=== PATIENT | male | born 1965 ===

== ENCOUNTER 2018-04-25 01:56 | Emergency (ER) | payer OTHER ==
[2018-04-25 02:06] VITALS: BP 158/104
[2018-04-25] MEDS ORDERED: GENTAMICIN 0.3% OPHTH SOLN OU ONE (03:27)
[2018-04-25] MEDS ORDERED: IBUPROFEN PO ONE (03:46)
[2018-04-25] MEDS ORDERED: BENADRYL PO ONE (03:46)
--- NOTE | 2018-04-25 03:52 | Emergency Department Report ---
[facility] Chief Complaint: Eye Problems Stated Complaint: POSS BILATERAL CONJUCTIVITUS Time Seen by Provider: 04/25/18 03:37 Duration: 4 Days Side: Bilateral Severity: moderate Symptoms: Yes Eye Itching, Yes Eye Redness, Yes Eye Pain (burning stinging), Yes Mucous Drainage, Yes Purulent Drainage, Yes H/O Allergic Rhinitis, Yes Contact Lens Use, No Blurred Vision, No Preceding URI, No Trauma, No Fever, No Headache Other History: Patient is a 52-year-old -[place] male who presents for bilateral conjunctivitis states treated by PCP unable to afford to get the d rops symptoms including itching and burning yellow-green mattering in a.m. patient denies fevers or chills no nausea vomiting no visual loss ED Review of Systems ROS: Stated complaint: POSS BILATERAL CONJUCTIVITUS Other details as noted in HPI Constitutional: denies: chills, fever Eyes: eye pain, eye discharge. denies: vision change ENT: denies: ear pain, throat pain Respiratory: denies: cough, shortness of breath, wheezing Cardiovascular: denies: chest pain, palpitations Endocrine: no symptoms reported Gastrointestinal: denies: abdominal pain, nausea, diarrhea Genitourinary: denies: urgency, dysuria Musculoskeletal: denies: back pain, joint swelling, arthralgia Skin: denies: rash, lesions Neurological: denies: headache, weakness, paresthesias Psychiatric: denies: anxiety, depression Hematological/Lymphatic: denies: easy bleeding, easy bruising ED Past Medical Hx - Past Medical History Previous Medical History?: Yes Hx Hypertension: Yes (not taking meds) - Surgical History Past Surgical History?: No - Social History Smoking Status: Current Every Day Smoker Substance Use Type: Alcohol - Medications Home Medications: Home Medications Medication Instructions Recorded Confirmed Last Taken Type Cetirizine HCl [ZyrTEC] 10 mg PO DAILY #30 capsule 04/25/18 Unknown Rx Gentamicin 0.3% Ophth Soln 2 drops OP Q4H 10 Days #1 bottle 04/25/18 Unknown Rx Ibuprofen 800 mg PO TID PRN #30 tablet 04/25/18 Unknown Rx [facility] Exam - Exam General: Vital signs noted. No distress. Alert and acting appropriately. Eye Exam: Left Injection, Right Abnormal Pupil, Both EOMI, Both Mucous Discharge, Both Purulent Discharge, Both Photophobia, Neither Chemosis, Neither Eye Foreign Body, Neither Lid Foreign Body, Neither Fluorescein Uptake, Neither Fluorescein Uptake (slit lamp), Neither Cell/Flare (slit lamp), Neither Corneal Edema HEENT: Yes Nasal Congestion, Yes Pharyngeal Erythema Remainder of HEENT: Normal Lungs: Yes Clear Lung Sounds, Yes Good Air Exchange, No Wheezes, No Stridor, No Cough, No Nasal Flaring, No Retractions, No Use of Accessory Muscles Exam: Patient is PERRLA EOMI mild bilateral conjunctivitis with conjunctival erythema yellow purulent drainage there is no decreased vision visual acuity is 20/30 bilaterally no symptoms of entrapment is positive movement in all quadrants no neurodeficits no fever ED Course Vital Signs 04/25/18 02:03 Temperature 98.4 F Pulse Rate 99 H Respiratory 16 Rate Blood Pressure 158/104 O2 Sat by Pulse 98 Oximetry ED Medical Decision Making - Medical Decision Making Plan treatment for conjunctivitis with gentamicin eyedrops 2 drops every 4 hours while awake 10 days Zyrtec and Benadryl patient will follow up with ophthalmology in 2 days for follow-up care patient will return to ED should symptoms worsen patient verbalized understanding and agreement with discharge plan will be DC'd home in stable condition at this time. Critical care attestation.: If time is entered above; I have spent that time in minutes in the direct care of this critically ill patient, excluding procedure time. ED Disposition Clinical Impression: Conjunctivitis Qualifiers: Conjunctivitis type: acute Acute conjunctivitis type: bacterial Laterality: bilateral Qualified Code(s): H10.33 - Unspecified acute conjunctivitis, bilateral Disposition: DC-01 TO HOME OR SELFCARE Is pt being admited?: No Does the pt Need Aspirin: No Condition: Stable Instructions: Conjunctivitis (ED) Prescriptions: Cetirizine HCl [ZyrTEC] 10 mg PO DAILY #30 capsule Gentamicin 0.3% Ophth Soln 2 drops OP Q4H 10 Days #1 bottle Ibuprofen 800 mg PO TID PRN #30 tablet PRN Reason: Pain , Severe (7-10) Referrals: PRASHANT RUSSO MD [Staff Physician] - 3-5 Days Forms: Work/School Release Form(ED) Time of Disposition: 04:01
== END 2018-04-25 04:05 | disposition home or self-care (01) ==
LOC: ED 01:56
DX: H10.33 Unspecified acute conjunctivitis, bilateral (principal); I10 Essential (primary) hypertension; F17.200 Nicotine dependence, unspecified, uncomplicated; Z88.1 Allergy status to other antibiotic agents
CPT/HCPCS: 99283

== ENCOUNTER 2018-08-26 05:29 | Emergency (ER) | payer OTHER ==
[2018-08-26 05:43] VITALS: BP 126/90
[2018-08-26 06:33] LABS: Basophils % (Auto) 0.3 % (0.0-1.8); Eosinophils # (Auto) 0.1 K/mm3 (0.0-0.4); Eosinophils % (Auto) 2.1 % (0.0-4.3); Hematocrit 39.9 % (35.5-45.6); Hemoglobin 12.8 gm/dl (11.8-15.2); Lymphocytes # (Auto) 1.7 K/mm3 (1.2-5.4); Lymphocytes % (Auto) 36.3 % (13.4-35.0); Mean Corpuscular HGB Conc 32 % (32-34); Mean Corpuscular Volume 76 fl (84-94); Monocytes # (Auto) 0.6 K/mm3 (0.0-0.8); Monocytes % (Auto) 13.2 % (0.0-7.3); Red Blood Count 5.25 M/mm3 (3.65-5.03)
[2018-08-26 06:36] LABS: BUN/Creatinine Ratio 24; Blood Urea Nitrogen 22 mg/dL (9-20); Calcium 8.9 mg/dL (8.4-10.2); Hemolysis Index 9
--- NOTE | 2018-08-26 06:43 | Emergency Department Report ---
ED Alcohol HPI - General Chief Complaint: Alcohol Stated Complaint: DETOX Time Seen by Provider: 08/26/18 06:19 Source: patient Mode of arrival: Ambulatory Limitations: No Limitations - History of Present Illness Initial Comments: 53-year-old male with a past medical history of hypertension presents to the hospital requesting detox from alcohol and cigarettes. Patient drinks liquor daily. Last alcohol intake was yesterday. He denies current tremors or history of alcohol withdrawal tremors or seizures. No physical complaints. He denies any other substance abuse. He denies any previous psychiatric history/diagnosis. - Related Data Home Medications Medication Instructions Recorded Confirmed Last Taken No Known Home Medications [No 08/26/18 08/26/18 Unknown Reported Home Medications] Allergies Allergy/AdvReac Type Severity Reaction Status Date / Time tetracycline Allergy Swelling Verified 04/25/18 02:02 ED Review of Systems ROS: Stated complaint: DETOX Other details as noted in HPI Comment: All other systems reviewed and negative ED Past Medical Hx - Past Medical History Previous Medical History?: Yes Hx Hypertension: Yes - Surgical History Past Surgical History?: Yes - Social History Smoking Status: Current Every Day Smoker Substance Use Type: Alcohol - Medications Home Medications: Home Medications Medication Instructions Recorded Confirmed Last Taken Type No Known Home Medications [No 08/26/18 08/26/18 Unknown History Reported Home Medications] ED Physical Exam - General Limitations: No Limitations - Other Other exam information: General: No limitations, patient is alert in no acute distress Head exam: Atraumatic, normocephalic Eyes exam: Normal appearance,left eye with limited medial movement which is chronic from previous injury ENT: Moist mucous membrane, normal oropharynx Neck exam: Normal inspection, full range of motion, no meningismus nontender Respiratory exam: Clear to auscultation bilateral, no wheezes, rales, crackles Cardiovascular: Normal rate and rhythm, normal heart sounds Abdomen: Soft, nondistended, and nontender, with normal bowel sounds, no rebound, or guarding Extremity: Full range of motion normal inspection no deformity Back: Normal Inspection, full range of motion, no tenderness Neurologic: Alert, oriented x3, cranial nerves intact, no motor or sensory deficit Psychiatric: normal affect, normal mood Skin: Warm, dry, intact ED Course Vital Signs 08/26/18 05:38 Temperature 97.8 F Pulse Rate 80 Respiratory 18 Rate Blood Pressure 126/90 O2 Sat by Pulse 100 Oximetry - Consultations Consultation #1: 08/26/18 08:41 pt seen by jess with mental health. outpt referral with [facility] will be provided ED Medical Decision Making - Lab Data Result diagrams: 08/26/18 06:05 08/26/18 06:05 Lab Results 08/26/18 08/26/18 08/26/18 Range/Units 06:05 06:05 06:05 WBC (4.5-11.0) K/mm3 RBC (3.65-5.03) M/mm3 Hgb (11.8-15.2) gm/dl Hct (35.5-45.6) % MCV (84-94) fl MCH (28-32) pg MCHC (32-34) % RDW (13.2-15.2) % Plt Count (140-440) K/mm3 Lymph % (Auto) (13.4-35.0) % [place] % (Auto) (0.0-7.3) % Eos % (Auto) (0.0-4.3) % Baso % (Auto) (0.0-1.8) % Lymph # (1.2-5.4) K/mm3 [place] # (0.0-0.8) K/mm3 Eos # (0.0-0.4) K/mm3 Baso # (0.0-0.1) K/mm3 Seg Neutrophils % (40.0-70.0) % Seg Neutrophils # (1.8-7.7) K/mm3 Sodium 142 (137-145) mmol/L Potassium 3.8 (3.6-5.0) mmol/L Chloride 103.4 (98-107) mmol/L Carbon Dioxide 26 (22-30) mmol/L Anion Gap 16 mmol/L BUN 22 H (9-20) mg/dL Creatinine 0.9 (0.8-1.5) mg/dL Estimated GFR > 60 ml/min BUN/Creatinine Ratio 24 % Glucose 91 (75-100) mg/dL Calcium 8.9 (8.4-10.2) mg/dL Magnesium (1.7-2.3) mg/dL Urine Color (Yellow) Urine Turbidity (Clear) Urine pH (5.0-7.0) Ur Specific [place] (1.003-1.030) Urine Protein (Negative) mg/dL Urine Glucose (UA) (Negative) mg/dL Urine Ketones (Negative) mg/dL Urine Blood (Negative) Urine Nitrite (Negative) Urine Bilirubin (Negative) Urine Urobilinogen (<2.0) mg/dL Ur Leukocyte Esterase (Negative) Urine WBC (Auto) (0.0-6.0) /HPF Urine RBC (Auto) (0.0-6.0) /HPF Urine Mucus /HPF Salicylates < 0.3 L (2.8-20.0) mg/dL Urine Opiates Screen Urine Methadone Screen Acetaminophen < 5.0 L (10.0-30.0) ug/mL Ur Barbiturates Screen Ur Phencyclidine Scrn Ur Amphetamines Screen U Benzodiazepines Scrn Urine Cocaine Screen U Marijuana (THC) Screen Drugs of Abuse Note Plasma/Serum Alcohol (0-0.07) % 08/26/18 08/26/18 08/26/18 Range/Units 06:05 06:05 06:05 WBC 4.5 (4.5-11.0) K/mm3 RBC 5.25 H (3.65-5.03) M/mm3 Hgb 12.8 (11.8-15.2) gm/dl Hct 39.9 (35.5-45.6) % MCV 76 L (84-94) fl MCH 24 L (28-32) pg MCHC 32 (32-34) % RDW 15.0 (13.2-15.2) % Plt Count 89 L (140-440) K/mm3 Lymph % (Auto) 36.3 H (13.4-35.0) % [place] % (Auto) 13.2 H (0.0-7.3) % Eos % (Auto) 2.1 (0.0-4.3) % Baso % (Auto) 0.3 (0.0-1.8) % Lymph # 1.7 (1.2-5.4) K/mm3 [place] # 0.6 (0.0-0.8) K/mm3 Eos # 0.1 (0.0-0.4) K/mm3 Baso # 0.0 (0.0-0.1) K/mm3 Seg Neutrophils % 48.1 (40.0-70.0) % Seg Neutrophils # 2.2 (1.8-7.7) K/mm3 Sodium (137-145) mmol/L Potassium (3.6-5.0) mmol/L Chloride (98-107) mmol/L Carbon Dioxide (22-30) mmol/L Anion Gap mmol/L BUN (9-20) mg/dL Creatinine (0.8-1.5) mg/dL Estimated GFR ml/min BUN/Creatinine Ratio % Glucose (75-100) mg/dL Calcium (8.4-10.2) mg/dL Magnesium 2.00 (1.7-2.3) mg/dL Urine Color (Yellow) Urine Turbidity (Clear) Urine pH (5.0-7.0) Ur Specific [place] (1.003-1.030) Urine Protein (Negative) mg/dL Urine Glucose (UA) (Negative) mg/dL Urine Ketones (Negative) mg/dL Urine Blood (Negative) Urine Nitrite (Negative) Urine Bilirubin (Negative) Urine Urobilinogen (<2.0) mg/dL Ur Leukocyte Esterase (Negative) Urine WBC (Auto) (0.0-6.0) /HPF Urine RBC (Auto) (0.0-6.0) /HPF Urine Mucus /HPF Salicylates (2.8-20.0) mg/dL Urine Opiates Screen Urine Methadone Screen Acetaminophen (10.0-30.0) ug/mL Ur Barbiturates Screen Ur Phencyclidine Scrn Ur Amphetamines Screen U Benzodiazepines Scrn Urine Cocaine Screen U Marijuana (THC) Screen Drugs of Abuse Note Plasma/Serum Alcohol < 0.01 (0-0.07) % 08/26/18 08/26/18 Range/Units 06:09 06:09 WBC (4.5-11.0) K/mm3 RBC (3.65-5.03) M/mm3 Hgb (11.8-15.2) gm/dl Hct (35.5-45.6) % MCV (84-94) fl MCH (28-32) pg MCHC (32-34) % RDW (13.2-15.2) % Plt Count (140-440) K/mm3 Lymph % (Auto) (13.4-35.0) % [place] % (Auto) (0.0-7.3) % Eos % (Auto) (0.0-4.3) % Baso % (Auto) (0.0-1.8) % Lymph # (1.2-5.4) K/mm3 [place] # (0.0-0.8) K/mm3 Eos # (0.0-0.4) K/mm3 Baso # (0.0-0.1) K/mm3 Seg Neutrophils % (40.0-70.0) % Seg Neutrophils # (1.8-7.7) K/mm3 Sodium (137-145) mmol/L Potassium (3.6-5.0) mmol/L Chloride (98-107) mmol/L Carbon Dioxide (22-30) mmol/L Anion Gap mmol/L BUN (9-20) mg/dL Creatinine (0.8-1.5) mg/dL Estimated GFR ml/min BUN/Creatinine Ratio % Glucose (75-100) mg/dL Calcium (8.4-10.2) mg/dL Magnesium (1.7-2.3) mg/dL Urine Color Yellow (Yellow) Urine Turbidity Clear (Clear) Urine pH 5.0 (5.0-7.0) Ur Specific [place] 1.030 (1.003-1.030) Urine Protein <15 mg/dl (Negative) mg/dL Urine Glucose (UA) Neg (Negative) mg/dL Urine Ketones Tr (Negative) mg/dL Urine Blood Neg (Negative) Urine Nitrite Neg (Negative) Urine Bilirubin Neg (Negative) Urine Urobilinogen 2.0 (<2.0) mg/dL Ur Leukocyte Esterase Neg (Negative) Urine WBC (Auto) 1.0 (0.0-6.0) /HPF Urine RBC (Auto) 3.0 (0.0-6.0) /HPF Urine Mucus Few /HPF Salicylates (2.8-20.0) mg/dL Urine Opiates Screen Presumptive negative Urine Methadone Screen Presumptive negative Acetaminophen (10.0-30.0) ug/mL Ur Barbiturates Screen Presumptive negative Ur Phencyclidine Scrn Presumptive negative Ur Amphetamines Screen Presumptive negative U Benzodiazepines Scrn Presumptive negative Urine Cocaine Screen Presumptive negative U Marijuana (THC) Screen Presumptive negative Drugs of Abuse Note Disclamer Plasma/Serum Alcohol (0-0.07) % - Medical Decision Making + etoh abuse, no acute intoxication or withdrawal symptoms Patient does not meet criteria for 1013 or acute inpatient treatment Will be discharged with outpatient referral Thrombocytopenia likely secondary to alcohol abuse, previous not available for comparison. No reports of active bleeding. Follow-up advised. - Differential Diagnosis alcohol detox, substance detox Critical Care Time: No Critical care attestation.: If time is entered above; I have spent that time in minutes in the direct care of this critically ill patient, excluding procedure time. ED Disposition Clinical Impression: AA (alcohol abuse), Thrombocytopenia Disposition: TO HOME OR SELFCARE Is pt being admited?: No Does the pt Need Aspirin: No Condition: Stable Instructions: Abuse of Alcohol (ED), Thrombocytopenia (ED) Additional Instructions: Follow-up with the outpatient resources provided with [facility] or [facility]. Follow up with a live games dealer or your primary care doctor for further evaluation of your low platelet level. Chronic alcohol abuse can lead to low platelet level which can increase your risk for bleeding. Return is symptoms worsen as indicated by your discharge instructions. Referrals: SHEKHAR ALDANA MD [Primary Care Provider] - 3-5 Days [facility] [Other] - 2-3 Days [facility] [Other] - 2-3 Days Time of Disposition: 08:51
[2018-08-26 07:21] LABS: Bilirubin,Urine NEG (Negative); Blood,Urine NEG (Negative); Color,Urine Yellow (Yellow); Mucus,Urine FEW /HPF; Protein,Urine <15 mg/dL mg/dL (Negative)
[2018-08-26 07:31] LABS: Amphetamine Screen,Urine PRESUMPTIVE NEGATIVE; Benzodiazepines Screen,Urine PRESUMPTIVE NEGATIVE; Cannabinoid Screen,Urine PRESUMPTIVE NEGATIVE; Cocaine Screen,Urine PRESUMPTIVE NEGATIVE; Methadone Screen,Urine PRESUMPTIVE NEGATIVE; Opiate Screen,Urine PRESUMPTIVE NEGATIVE
[2018-08-26 08:07] LABS: Platelet Count 89 K/mm3 (140-440)
== END 2018-08-26 09:08 | disposition home or self-care (01) ==
LOC: ED 05:29
DX: F10.10 Alcohol abuse, uncomplicated (principal); D69.6 Thrombocytopenia, unspecified; I10 Essential (primary) hypertension; F17.200 Nicotine dependence, unspecified, uncomplicated; Z88.1 Allergy status to other antibiotic agents
CPT/HCPCS: 36415; 80048; 80307; 81001; 83735; 85025; 99284; G0480; 80320; 99283

== ENCOUNTER 2018-12-24 11:29 | Emergency (ER) | payer SELFPAY ==
[2018-12-24 11:37] VITALS: BP 137/97
--- NOTE | 2018-12-24 11:41 | Emergency Department Report ---
Chief Complaint: Medical Clearance Stated Complaint: HBP Time Seen by Provider: 12/24/18 11:35 - HPI History of Present Illness: This is a 53-year-old male nontoxic, well in appearance with no signs of distress presents to the ED for blood pressure check. Patient stated does take medications for his blood pressure. Patient stated he is asymptotic. Denies any pain. Patient denies any urinary symptoms. Patient denies any fever, chills, headache, nausea, vomiting, chest pain or shortness of breathe. denies any symptoms or complaints. - Exam Vital Signs: Vital Signs 12/24/18 11:35 Temperature 98.5 F Pulse Rate 96 H Respiratory 16 Rate Blood Pressure 137/97 O2 Sat by Pulse 98 Oximetry Physical Exam: no headache. no abdominal pain. no back pain. MSE screening note: Focused history and physical exam performed. Due to findings the following was ordered: ED Medical Decision Making - Medical Decision Making This is a 53-year-old male that presents with nonmedical emergency complaint. I gave patient many different referrals to follow-up. Patient was instructed to Follow-up with a primary care doctor in 3-5 days or if symptoms worsen and continue return to emergency room as soon as possible. At time of discharge, the patient does not seem toxic or ill in appearance. No acute signs of distress noted. Patient agrees to discharge treatment plan of care. No further questions noted by the patient. ED Disposition for MSE Clinical Impression: Elevated blood pressure reading Disposition: Z-07 MED SCREENING EXAM-LEFT Is pt being admited?: No Does the pt Need Aspirin: No Condition: Stable Additional Instructions: Follow-up with a primary care doctor in 3-5 days or if symptoms worsen and continue return to emergency room as soon as possible. Referrals: FARNAZ ESPINOSA MD [Referring] - 3-5 Days UJAN TOLEDO MD [Staff Physician] - 3-5 Days [facility] [Outside] - 3-5 Days [facility] [Outside] - 3-5 Days
== END 2018-12-24 12:30 | disposition left against medical advice (07) ==
LOC: ED 11:29
DX: R03.0 Elevated blood-pressure reading, without diagnosis of hypertension (principal); Z88.1 Allergy status to other antibiotic agents

== ENCOUNTER 2021-01-27 02:06 | Emergency (ER) | payer SELFPAY ==
[2021-01-27 02:11] VITALS: BP 127/81
--- NOTE | 2021-01-27 05:00 | Emergency Department Report ---
ED General Adult HPI - General Chief complaint: Upper Respiratory Infection Stated complaint: SHORTNESS OF BREATH X 1 MONTH Time Seen by Provider: 01/27/21 03:05 Source: EMS Mode of arrival: Ambulatory Limitations: No Limitations - History of Present Illness Initial comments: Patient 55-year-old male who presents for shortness of breath x1 month. Patient denies fevers chills no stridor no wheezing no cough. Patient states symptoms are exacerbated by viral exposure. Symptoms are relieved by nothing tried. Patient denies chest pain. Is been no nausea vomiting no dizziness or lightheadedness. Patient is tolerating p.o. intake. Positive patient states homeless and really seeking respite to rest. - Related Data Previous Rx's Medication Instructions Recorded Last Taken Type Albuterol Mdi (or & Nicu Only) 2 puff IH QID PRN #8.5 gram 01/27/21 Unknown Rx [ProAir HFA Inhaler] Allergies Allergy/AdvReac Type Severity Reaction Status Date / Time tetracycline Allergy Swelling Verified 01/27/21 02:12 ED Review of Systems ROS: Stated complaint: SHORTNESS OF BREATH X 1 MONTH Other details as noted in HPI Constitutional: denies: chills, fever Eyes: denies: eye pain, eye discharge, vision change ENT: denies: ear pain, throat pain Respiratory: denies: cough, shortness of breath, wheezing Cardiovascular: denies: chest pain, palpitations Endocrine: no symptoms reported Gastrointestinal: denies: abdominal pain, nausea, vomiting, diarrhea Genitourinary: denies: urgency, dysuria Musculoskeletal: denies: back pain, joint swelling, arthralgia Skin: denies: rash, lesions Neurological: denies: headache, weakness, paresthesias, vertigo Psychiatric: denies: anxiety, depression Hematological/Lymphatic: denies: easy bleeding, easy bruising ED Past Medical Hx - Past Medical History Hx Hypertension: Yes - Social History Smoking Status: Never Smoker Substance Use Type: None - Medications Home Medications: Home Medications Medication Instructions Recorded Confirmed Last Taken Type Albuterol Mdi (or & Nicu Only) 2 puff IH QID PRN #8.5 gram 01/27/21 Unknown Rx [ProAir HFA Inhaler] ED Physical Exam - General Limitations: No Limitations General appearance: alert, in no apparent distress - Head Head exam: Present: normocephalic, normal inspection - Eye Eye exam: Present: normal appearance, PERRL, EOMI Pupils: Present: normal accommodation - ENT ENT exam: Present: mucous membranes moist - Neck Neck exam: Present: normal inspection, full ROM. Absent: tenderness - Respiratory Respiratory exam: Present: normal lung sounds bilaterally. Absent: respiratory distress, wheezes, rales, rhonchi, stridor, chest wall tenderness, prolonged expiratory - Cardiovascular Cardiovascular Exam: Present: regular rate, normal rhythm, normal heart sounds. Absent: systolic murmur, diastolic murmur, rubs, gallop - GI/Abdominal GI/Abdominal exam: Present: soft, normal bowel sounds. Absent: distended, tenderness - Rectal Rectal exam: Present: deferred - Extremities Exam Extremities exam: Present: normal inspection, full ROM, normal capillary refill. Absent: tenderness - Back Exam Back exam: Present: normal inspection - Neurological Exam Neurological exam: Present: alert, oriented X3, CN II-XII intact, normal gait - Psychiatric Psychiatric exam: Present: normal affect, normal mood - Skin Skin exam: Present: warm, dry, intact, normal color. Absent: rash ED Course Vital Signs 01/27/21 02:10 Temperature 98.9 F Pulse Rate 73 Respiratory 18 Rate Blood Pressure 127/81 [Left] O2 Sat by Pulse 100 Oximetry ED Medical Decision Making - Medical Decision Making Patient states improvement in symptoms , symptoms are vague however ,patient appears well well-nourished well-hydrated with no acute distress. Patient is alert oriented x3 ambulatory with steady gait, lung sounds clear throughout, pt now adiplan will DC to home, patient will follow-up primary care doctor. pt verbalizd agreement and understanding of same. Pt dc'd to home in stable condit ion at this time. Critical care attestation.: If time is entered above; I have spent that time in minutes in the direct care of this critically ill patient, excluding procedure time. ED Disposition Clinical Impression: Malingering, Homelessness Disposition: 01 HOME / SELF CARE / HOMELESS Is pt being admited?: No Does the pt Need Aspirin: No Condition: Stable Instructions: Stress, Adult, Cough, Adult Additional Instructions: Take all medications as prescribed, follow-up with your doctor in 2 to 3 days. Return to the emergency department should symptoms worsen. Prescriptions: Albuterol Mdi (or & Nicu Only) [ProAir HFA Inhaler] 2 puff IH QID PRN #8.5 gram PRN Reason: Shortness Of Breath Referrals: PRIMARY CARE, [Primary Care Provider] - 3-5 Days [facility] [Provider Group] - 3-5 Days Forms: Work/School Release Form(ED) Time of Disposition: 05:17
== END 2021-01-27 05:30 | disposition home or self-care (01) ==
LOC: ED 02:06
DX: Z76.5 Malingerer [conscious simulation] (principal); Z59.00 Homelessness unspecified; Z88.1 Allergy status to other antibiotic agents
CPT/HCPCS: 99283

== ENCOUNTER 2021-01-28 06:58 | Emergency (ER) | payer SELFPAY ==
[2021-01-28 08:03] VITALS: BP 140/74
== END 2021-01-28 08:00 | disposition left against medical advice (07) ==
LOC: ED 06:58
DX: J06.9 Acute upper respiratory infection, unspecified (principal); Z53.21 Procedure and treatment not carried out due to patient leaving prior to being seen by health care provider

== ENCOUNTER 2021-03-10 07:44 | Emergency (ER) | payer SELFPAY ==
[2021-03-10 07:47] VITALS: BP 160/118
== END 2021-03-10 07:50 | disposition left against medical advice (07) ==
LOC: ED 07:44
DX: Z00.00 Encounter for general adult medical examination without abnormal findings (principal); Z53.21 Procedure and treatment not carried out due to patient leaving prior to being seen by health care provider

== ENCOUNTER 2021-03-24 08:27 | Emergency (ER) | payer SELFPAY ==
[2021-03-24 08:43] VITALS: BP 143/99
--- NOTE | 2021-03-24 09:22 | Emergency Department Report ---
ED Extremity Problem HPI - General Chief complaint: Extremity Problem,Nontraumatic Stated complaint: SWOLLEN FEET Time Seen by Provider: 03/24/21 09:17 Source: patient Mode of arrival: Ambulatory Limitations: No Limitations - History of Present Illness Initial comments: 55-year-old -[place] male presents to the emergency room stating he is homeless and both with his feet hurt. Patient is currently wearing no shoes. Patient states that he walks around a lot and is constantly on his feet. He denies any injuries. He has a pair shoes that do not fit him but he is caring in his hand. Patient is requesting slippers. MD Complaint: extremity pain, extremity swelling -: week(s) Location: left, right, lower extremity History of Same: Yes -: Yes arthralgia Radiation: none Severity scale (0 -10): 4 Quality: aching Improves with: immobilization Worsens with: weight bearing, walking - Related Data Previous Rx's Medication Instructions Recorded Last Taken Type Albuterol Mdi (or & Nicu Only) 2 puff IH QID PRN #8.5 gram 01/27/21 Unknown Rx [ProAir HFA Inhaler] Allergies Allergy/AdvReac Type Severity Reaction Status Date / Time tetracycline Allergy Swelling Verified 03/24/21 08:43 ED Review of Systems ROS: Stated complaint: SWOLLEN FEET Other details as noted in HPI Comment: All other systems reviewed and negative ED Past Medical Hx - Past Medical History Hx Hypertension: Yes - Social History Smoking Status: Never Smoker Substance Use Type: None - Medications Home Medications: Home Medications Medication Instructions Recorded Confirmed Last Taken Type Albuterol Mdi (or & Nicu Only) 2 puff IH QID PRN #8.5 gram 01/27/21 Unknown Rx [ProAir HFA Inhaler] ED Physical Exam - General Limitations: No Limitations General appearance: alert, in no apparent distress - Head Head exam: Present: atraumatic, normocephalic - Eye Eye exam: Present: normal appearance - ENT ENT exam: Present: mucous membranes moist, normal external ear exam - Neck Neck exam: Present: normal inspection, full ROM - Respiratory Respiratory exam: Absent: respiratory distress, accessory muscle use - Cardiovascular Cardiovascular Exam: Present: regular rate - Extremities Exam Extremities exam: Present: other (Both feet are miles wiling nonerythematous no sores appreciated skin is very dry and flaky) - Neurological Exam Neurological exam: Present: normal gait - Psychiatric Psychiatric exam: Present: normal affect, normal mood - Skin Skin exam: Present: dry, intact ED Course Vital Signs 03/24/21 08:42 Temperature 97.9 F Pulse Rate 72 Respiratory 20 Rate Blood Pressure 143/99 [Left] O2 Sat by Pulse 100 Oximetry ED Medical Decision Making - Medical Decision Making 55-year-old -[place] male presents to the emergency room stating he is homeless and both with his feet hurt. Patient is currently wearing no shoes. Patient states that he walks around a lot and is constantly on his feet. He denies any injuries. He has a pair shoes that do not fit him but he is caring in his hand. Patient is requesting slippers. Encourage patient to follow-up with the primary care provider. Go to a half-way and stay off his feet. He can use [id number] Tylenol ibuprofen for pain get lotion to rub on his feet to keep the dryness. And elevate watch his sodium intake. Critical care attestation.: If time is entered above; I have spent that time in minutes in the direct care of this critically ill patient, excluding procedure time. ED Disposition Clinical Impression: Chronic pain of both feet Disposition: HOME / SELF CARE / HOMELESS Is pt being admited?: No Does the pt Need Aspirin: No Condition: Stable Instructions: Foot Pain Additional Instructions: Recommend to increase your fluid intake. Avoid walking without shoes elevate watch her sodium intake apply lotion to your legs. Referrals: PRIMARY MD JESÚS [Primary Care Provider] - 3-5 Days [facility] [Provider Group] - 3-5 Days Time of Disposition: 09:22
== END 2021-03-24 09:37 | disposition home or self-care (01) ==
LOC: ED 08:27
DX: G89.29 Other chronic pain (principal); M79.672 Pain in left foot; M79.671 Pain in right foot; I10 Essential (primary) hypertension
CPT/HCPCS: 99282

== ENCOUNTER 2021-10-09 21:05 | Emergency (ER) | payer SELFPAY | END 2021-10-10 19:00 | disposition left against medical advice (07) | LOC: ED 21:05 | DX: I10 Essential (primary) hypertension (principal); Z53.21 Procedure and treatment not carried out due to patient leaving prior to being seen by health care provider ==